=== PATIENT | female | born 1950 | race Caucasian/White ===

== ENCOUNTER 2016-08-30 15:02 | Emergency (ER) | payer BC ==
[~2016-08-30] VITALS: Ht 162.6 cm; Wt 70.5 kg
[~2016-08-30 15:02] MED LIST: AMITRIPTYLINE H50 M1 PO; CALCIUM 600MG+D1 TAB PO; DYAZIDE 25 MG-31 CAP PO; FLEXERIL 1010 MG/TAB PO; LODINE400 MG PO; LOTENSIN HCT 201 TA1 PO; LOTENSIN5 MG PO; PROTONIX 40MG T40 MG PO; TYLENOL W/COD1 UDTAB PO; ULTRAM 50MG TAB50 MG PO; XANAX .25M0.25 MG/TA PO
[2016-08-30 15:13] VITALS: BP 118/85; TEMP 98.8
[2016-08-30 16:26] LABS: BASO % 0.1 % (0.0-2.0); GRAN # 14.1 (1.4-6.5); GRAN % 88.4 % (42.2-75.2); HEMATOCRIT 39.5 % (37.0-47.0); HEMOGLOBIN 13.3 g/dl (12.5-16.0); LYMPH % 6.2 % (20.0-51.0); MEAN CELL VOLUME 89 fl (80.0-100.0); MEAN CORPUSCULAR HEMOGLOBIN 30 pg (27.0-31.0); MEAN CORPUSCULAR HGB CONC 34 g/dl (33.0-37.0); MEAN PLATELET VOLUME 8.6 fl (7.4-10.4); MONO # 0.8 (0.1-0.6); MONO % 4.8 % (1.7-9.3); PLATELET COUNT 293 K/mm3 (130-400); RED BLOOD COUNT 4.45 M/mm3 (4.10-5.30); REDCELL DISTRIBUTION WIDTH-CV 14.1 % (11.5-14.5); WHITE BLOOD COUNT 15.9 K/mm3 (4.8-10.8)
[2016-08-30 16:39] LABS: ALBUMIN 4.5 gm/dL (3.5-5.0); BILIRUBIN,TOTAL 0.5 mg/dL (0.0-1.0); CALCIUM 9.4 mg/dL (8.4-10.2); CREATININE, serum 0.68 mg/dL (0.52-1.25); POTASSIUM 3.6 mmol/L (3.4-5.0); TOTAL PROTEIN 7.7 gm/dL (6.4-8.2)
[2016-08-30] MEDS ORDERED: TYLENOL 325MG325 MG PO (16:46)
[2016-08-30] MEDS ORDERED: PREDNISONE20 MG PO (17:36)
[2016-08-30] MEDS ORDERED: PROAIR HFA0.09 MG/AC IH (17:36)
[2016-08-30] MEDS ORDERED: PROMETHAZINE V473 M2 PO (17:36)
[2016-08-30 17:48] VITALS: PULSE 104
== END 2016-08-30 17:48 | disposition home or self-care (01) ==
LOC: COL.ER 15:02
PROVIDERS: Nurse Practitioner
DX: R05 Cough (principal); I10 Essential (primary) hypertension; Z87.891 Personal history of nicotine dependence

== ENCOUNTER → 2017-09-24 | Outpatient (CLI) | payer MEDICARE, BC ==
[~2017-09-24] MED LIST changes: +PREDNISONE20 MG PO; +PROAIR HFA0.09 MG/AC IH; +PROMETHAZINE V473 M2 PO; +TYLENOL 325MG325 MG PO
== END ==
LOC: MC.RAD 07:20
DX: Z12.31 Encounter for screening mammogram for malignant neoplasm of breast (principal)

== ENCOUNTER → 2018-07-22 | Outpatient (CLI) | payer MEDICARE, BC | LOC: COL.RAD 08:11 | DX: M16.12 Unilateral primary osteoarthritis, left hip (principal); M89.9 Disorder of bone, unspecified | CPT/HCPCS: A9585 ==

== ENCOUNTER → 2018-10-28 | Outpatient (CLI) | payer MEDICARE, BC | LOC: MC.RAD 09:09 | DX: Z12.31 Encounter for screening mammogram for malignant neoplasm of breast (principal) ==

== ENCOUNTER → 2020-02-10 | Outpatient (CLI) | payer MEDICARE, BC | LOC: COL.LAB 08:40 | DX: Z20.828 Contact with and (suspected) exposure to other viral communicable diseases (principal) ==

== ENCOUNTER 2021-01-11 08:13 | Day surgery (SDC) | payer MEDICARE, BC ==
[~2021-01-11] VITALS: Ht 162.6 cm; Wt 65.3 kg
[2021-01-11] MEDS ORDERED: OMEGA-3 1000 MG1 CAP PO (08:57)
[2021-01-11] MEDS ORDERED: EFFEXOR XR75 MG/CAP PO (08:58)
[2021-01-11 10:15] VITALS: BP 134/59; PULSE 78; TEMP 98.3
[2021-01-11 10:30] VITALS: BP 134/76; PULSE 74
[2021-01-11 10:45] VITALS: BP 142/74; PULSE 83
[2021-01-11 11:00] VITALS: BP 125/63; PULSE 86
[2021-01-11 12:54] VITALS: BP 132/74; PULSE 20; TEMP 98.3
--- NOTE | 2021-01-11 13:07 | NUR ---
PT RETURNED FROM THE ENDO PROCEDURE ROOM PER CART INTO BAY# 2. PT ALERT AND SLEEPY. LUNGS CLEAR TO ALL NOVOA, HRR, BOWEL SOUNDS PRESENT AND HYPO ACTIVE PT REQUESTING APPLE JUICE AND BLUEBERRY MUFFIN. PT DENIES PAIN OR NAUSEA AT THIS TIME. IVF FLOWING PATENT INTO RIGHT FOREARM. WILL CONT TO MONITOR PROGRESS.
--- NOTE | 2021-01-11 13:10 | NUR ---
PT TOLERATING FOOD AND FLUIDS. DENIES PAIN OR NAUSEA AT THIS TIME. WILL CONT TO MONITOR PROGRESS.
--- NOTE | 2021-01-11 13:13 | NUR ---
PT TOLERATING FOOD AND FLUIDS. PT DENIES PAIN OR NAUSEA. DISCHARGE INSTRUCTIONS GIVEN AND SIGNED. PT DENIES QUESTIONS. PT WAS TAKEN TO PT ENTRANCE PER AND DISCHARGED TO SISTER-LAW, [employer]HICLE. STALIN MARIA.
== END 2021-01-11 09:35 | disposition home or self-care (01) ==
LOC: SDCO 08:13
DX: K62.1 Rectal polyp (principal); K63.3 Ulcer of intestine; K21.9 Gastro-esophageal reflux disease without esophagitis; E78.5 Hyperlipidemia, unspecified; I10 Essential (primary) hypertension; G43.909 Migraine, unspecified, not intractable, without status migrainosus; K57.30 Diverticulosis of large intestine without perforation or abscess without bleeding; K64.0 First degree hemorrhoids; M19.90 Unspecified osteoarthritis, unspecified site; F41.9 Anxiety disorder, unspecified; F32.9 Major depressive disorder, single episode, unspecified; Z90.710 Acquired absence of both cervix and uterus; Z79.899 Other long term (current) drug therapy
CPT/HCPCS: J2704; J7030

== ENCOUNTER 2021-03-30 06:26 | Day surgery (SDC) | payer MEDICARE, BC ==
[~2021-03-30] VITALS: Ht 162.7 cm; Wt 62.8 kg
[2021-03-30] VITALS (10 sets, daily range): BP systolic 106–130; BP diastolic 55–86; PULSE 74–109; TEMP 98–98.5
[~2021-03-30 06:26] MED LIST changes: +EFFEXOR XR75 MG/CAP PO; +OMEGA-3 1000 MG1 CAP PO
[2021-03-30] MEDS ORDERED: CALCIUM 600/VIT1 CA1 PO (08:17)
[2021-03-30] MEDS ORDERED: TYLENOL W/COD1 UDTAB PO (08:19)
--- NOTE | 2021-03-30 13:48 | NUR ---
PT TO ROOM 330 PER BED WITH REPORT FROM [facility]. PT IS A/O X3, LUNGS CTA, VSS, DRESSING TO LEFT HIP CDI WITH OCCLUSIVE FOAM TAPE OVER DRESSINGS. MINOR EXCORIATION TO LEFT GROIN FROM SURGERY. IV TO LFA PER PUMP. SCDS BIALTERALLY.
--- NOTE | 2021-03-30 14:28 | NUR ---
DR. TINEO IN TO SEE PT THIS PM.
--- NOTE | 2021-03-30 16:52 | NUR ---
PT STRUGGLING WITH PAIN CONTROL. PO PAIN MEDS GIVEN. IV MORPHINE FOR BREAKTHROUGH PAIN. PO XANAX PRN GIVEN PER REQUEST. PT REPORTS POSITIVE USE OF T-3 FOR MANY YEARS. APPEARS TO HAVE A HIGH NARCOTIC TOLERANCE.
--- NOTE | 2021-03-30 22:52 | NUR ---
PATIENT ALERT AND ORIENTED X4. PATIENT IN CHAIR RATING PAIN AN 8. PATIENT GIVEN PAIN MEDS PER ORDERS. AMBULATED WITH WALKER TO BATHROOM. THEN BACK TO BED, POSITIONED WITH PILLOWS, AND ICE TO LEFT HIP. PATIENT HAS GAUZE AND FOAM TAPE TO LEFT HIP AND SCDS ON. PATIENT HAS IV TO LEFT HAND AND HX OF CHRONIC PAIN. PATIENT DENIES FURTHER NEEDS AT THIS TIME. CALL LIGHT WITHIN REACH. HEAD TO TOE ASSESSMENT COMPLETE.
[2021-03-31] VITALS: BP 135/75; PULSE 77; TEMP 98.5
[2021-03-31 03:33] VITALS: BP 132/71; PULSE 65; TEMP 98.4
--- NOTE | 2021-03-31 06:20 | NUR ---
PATIENT'S PAIN IMPROVED THROUGHOUT THE NIGHT AND SHE WAS ABLE TO FALL ASLEEP. PAIN MEDS GIVEN PER ORDERS THROUGHOUT THE NIGHT. NO FURTHER NEEDS AT THIS TIME. WILL REPORT TO DAYSHIFT.
[2021-03-31 07:12] LABS: HEMATOCRIT 29.1 % (37.0-47.0); HEMOGLOBIN 9.6 g/dl (12.5-16.0)
[2021-03-31 08:50] VITALS: BP 131/66; PULSE 111; TEMP 98.9
--- NOTE | 2021-03-31 10:15 | NUR ---
packing floor worker met with patient to discuss discharge plan. Patient lives at home alone in [place]. Patient reports that she is fully independent at home with activities of daily living and uses a cane and a walker to ambulate when she needs it. Patient has a daughter that lives [address] from her and a son in [place]. Patient reports that she does not have a DPOA-HC and does not wish to establish one at this time. Patient's sister is planning on staying with her at home for an unknown amount of time. *Discharge plan: Home with family*
--- NOTE | 2021-03-31 10:27 | NUR ---
PT UP TO RECLINER AFTER WORKING WITH PT. PT UNABLE TO GO FURTHER THAN DOORWAY. ANXIETY AND PAIN WERE CONTRIBUTING FACTORS TO INABLITY TO WALK FURTHER. THERAPY RECC OVERNIGHT FOR FURTHER PROGRESS. PO MEDS BEING USED FOR PAIN CONTROLL. 10 MG RANDY Q4 REGULAR.
[2021-03-31 12:07] VITALS: BP 127/51; PULSE 111; TEMP 98.2
[2021-03-31 16:18] VITALS: BP 137/62; PULSE 115; TEMP 98.7
--- NOTE | 2021-03-31 20:00 | NUR ---
PATIENT IS ALERT AND ORIENTED X4. PATIENT SITTING UP IN BED EATING DINNER. SISTER AT BEDSIDE. PATIENT HAS AQUACELL TO LEFT HIP. PAIN MEDS GIVEN PER ORDERS. PATIENT HAS IV TO THE LEFT HAND INT. PATIENT DENIES FURTHER NEEDS AT THIS TIME. CALL LIGHT WITHIN REACH. HEAD TO TOE ASSESSMENT COMPLETE.
[2021-03-31 21:00] VITALS: BP 110/55; PULSE 102; TEMP 97.9
[2021-04-01 00:06] VITALS: BP 118/50; PULSE 100; TEMP 98.2
[2021-04-01 02:52] VITALS: BP 109/74; PULSE 111; TEMP 98.3
[2021-04-01 05:54] VITALS: BP 102/50; PULSE 93; TEMP 98.1
--- NOTE | 2021-04-01 06:12 | NUR ---
PATIENT DID WELL THROUGHOUT NIGHT. SLEPT MOST OF NIGHT. STATES SHE IS FEELING MUCH BETTER TONIGHT THAN YESTERDAY AND MAY GO HOME TODAY. NO FURTHER NEEDS AT THIS TIME. WILL REPORT TO DAY SHIFT.
[2021-04-01 07:42] VITALS: BP 108/53; PULSE 93; TEMP 98.2
[2021-04-01] MEDS ORDERED: ASPI325T6 PO (10:26)
[2021-04-01] MEDS ORDERED: ROXICODONE 55 MG/TAB PO (10:28)
[2021-04-01] MEDS ORDERED: SENOKOT S 50 MG1 TAB PO (10:29)
[2021-04-01 10:53] VITALS: BP 120/53; PULSE 59; TEMP 98.6
--- NOTE | 2021-04-01 14:40 | NUR ---
Patient has done well today. She worked with therapy this am & pm. Pain managed well with orders. Aquacell dressing intact. Int dc for discharge. We reviewed all discharge instructions. We reviewed med list, new scripts & last dose taken. Patient had questions about her home antiinflammatory med being stopped, notifed & we reviewed. Due to ASA for DVT prevention. Patient not able to continue at this time. Patient wheeled out with all belongings. Denies questions or cocnerns. Her sister taking her home
== END 2021-04-01 15:45 | disposition home or self-care (01) ==
LOC: INPTSU 06:26 → SURG 06:26 → SDCO 06:26 → INPTSU 06:27 → SURG 10:15 → EDSTATUS 13:00 → SURG 13:00 → SDCO 04-01 15:45
PROVIDERS: Orthopaedic Surgery
DX: M16.12 Unilateral primary osteoarthritis, left hip (principal); I96 Gangrene, not elsewhere classified; I10 Essential (primary) hypertension; M47.816 Spondylosis without myelopathy or radiculopathy, lumbar region; M54.10 Radiculopathy, site unspecified; E78.5 Hyperlipidemia, unspecified; K21.9 Gastro-esophageal reflux disease without esophagitis; J40 Bronchitis, not specified as acute or chronic; G43.909 Migraine, unspecified, not intractable, without status migrainosus; F32.9 Major depressive disorder, single episode, unspecified; F41.9 Anxiety disorder, unspecified; Z20.822 Contact with and (suspected) exposure to COVID-19; Z79.899 Other long term (current) drug therapy
CPT/HCPCS: OP; A4314; A9284; C1713; C1776; J0690; J2250; J2270; J2704; J3010; J7030; J7120

== ENCOUNTER 2021-06-30 10:32 | Emergency (ER) | payer MEDICARE, BC ==
[~2021-06-30] VITALS: Ht 162.6 cm; Wt 63.6 kg
[~2021-06-30 10:32] MED LIST changes: +ASPI325T6 PO; +CALCIUM 600/VIT1 CA1 PO; +ROXICODONE 55 MG/TAB PO; +SENOKOT S 50 MG1 TAB PO
[2021-06-30 10:47] VITALS: TEMP 98.5
[2021-06-30] MEDS ORDERED: DOXYCYCLINE 10100 MG PO (12:25)
[2021-06-30 12:36] VITALS: BP 145/81; PULSE 86
== END 2021-06-30 12:36 | disposition home or self-care (01) ==
LOC: COL.ER 10:32
DX: J20.9 Acute bronchitis, unspecified (principal); I10 Essential (primary) hypertension; F41.9 Anxiety disorder, unspecified; Z79.899 Other long term (current) drug therapy

== ENCOUNTER 2021-09-19 19:29 | Emergency (ER) | payer MEDICARE, BC ==
[~2021-09-19] VITALS: Ht 160 cm; Wt 61.4 kg
[~2021-09-19 19:29] MED LIST changes: +DOXYCYCLINE 10100 MG PO
[2021-09-19 19:37] VITALS: TEMP 98.6
[2021-09-19 19:55] LABS: BASO # 0.1 K/mm3 (0.0-0.2); BASO % 0.5 % (0.0-2.0); EOS # 0.3 K/mm3 (0.0-0.7); GRAN # 5.5 K/mm3 (1.4-6.5); GRAN % 53.4 % (42.2-75.2); HEMOGLOBIN 11.5 g/dl (12.5-16.0); LYMPH # 3.5 K/mm3 (1.2-3.4); LYMPH % 33.6 % (20.0-51.0); MEAN CELL VOLUME 80 fl (80.0-100.0); MEAN CORPUSCULAR HEMOGLOBIN 27 pg (27-31); MEAN CORPUSCULAR HGB CONC 34 g/dl (33.0-37.0); MEAN PLATELET VOLUME 8.3 fl (7.4-10.4); MONO # 0.9 K/mm3 (0.1-0.6); MONO % 8.8 % (1.7-9.3); PLATELET COUNT 291 K/mm3 (130-400); RED BLOOD COUNT 4.24 M/mm3 (4.10-5.30); REDCELL DISTRIBUTION WIDTH-CV 15.6 % (11.5-14.5)
[2021-09-19 20:00] LABS: HEMATOCRIT 34.1 % (37.0-47.0)
[2021-09-19 20:17] LABS: ALANINE AMINOTRANSFERASE 15 U/L (0-55); ALBUMIN 3.7 gm/dL (3.4-4.8); ALCOHOL(ethanol),MEDICAL 287 mg/dL (0-10); ALKALINE PHOSPHATASE 88 U/L (40-150); ANION GAP 14 mmol/L (7-16); AST,SGOT 23 U/L (5-34); BILIRUBIN,TOTAL 0.2 mg/dL (0.2-1.2); BLOOD UREA NITROGEN 19 mg/dL (10-20); CALCIUM 8.3 mg/dL (8.4-10.2); CARBON DIOXIDE 19 mmol/L (23-31); CHLORIDE 102 mmol/L (98-107); GLUCOSE 108 mg/dL (70-99); POTASSIUM 3.5 mmol/L (3.5-4.5); SALICYLATE < 5.0 mg/dL (15.0-30.0); SODIUM 135 mmol/L (136-145); TOTAL PROTEIN 6.5 gm/dL (6.2-8.1)
[2021-09-19 21:18] LABS: COLLECTION METHOD CATHETER
[2021-09-19 21:24] LABS: PH 5 (5-8); SQUAMOUS EPITHELIAL 0-2 /hpf (0-10); URINE APPEARANCE Clear (CLEAR/HAZY); URINE BACTERIA None Seen /hpf (NONE SEEN); URINE BILIRUBIN Negative (NEGATIVE); URINE BLOOD 1+ (NEGATIVE); URINE COLOR Straw (YELLOW); URINE GLUCOSE Negative (NEGATIVE); URINE KETONE Negative (NEGATIVE); URINE LEUKOCYTE ESTERASE Negative (NEGATIVE); URINE NITRATE Negative (NEGATIVE); URINE PROTEIN(semi-quant) Negative (NEGATIVE); URINE RBC None Seen /hpf (0-2); URINE UROBILINOGEN Negative (NEGATIVE)
[2021-09-19 21:35] LABS: TRICYCLIC ANTIDEPRESS URINE POSITIVE
[2021-09-20 00:26] VITALS: BP 122/78; PULSE 93
== END 2021-09-20 00:26 | disposition home or self-care (01) ==
LOC: COL.ER 19:29
PROVIDERS: Nurse Practitioner Primary Care
DX: F10.129 Alcohol abuse with intoxication, unspecified (principal); I10 Essential (primary) hypertension; F41.9 Anxiety disorder, unspecified; K21.9 Gastro-esophageal reflux disease without esophagitis; F32.A Depression, unspecified; Z79.899 Other long term (current) drug therapy; Y90.8 Blood alcohol level of 240 mg/100 ml or more
CPT/HCPCS: J7030